=== PATIENT | male | born 1950 | race Caucasian/White ===

== ENCOUNTER 2016-05-19 00:55 | Emergency (ER) | payer MEDICAID, SELFPAY ==
[2016-05-19 01:03] VITALS: BP 173/102
[2016-05-19] MEDS ORDERED: Sodium Chloride 0.9% 1,000 ML IV SCH (01:30)
--- NOTE | 2016-05-19 01:46 | EDM.PDOC ---
ED HPI GENERAL MEDICAL PROBLEM - General Chief Complaint: Abdominal Pain Stated Complaint: [facility] Time Seen by Provider: 05/19/16 01:01 Source of Information: Reports: Patient, EMS, RN notes reviewed History Limitations: Reports: Combative/threatening, Intoxication, Uncooperative - History of Present Illness INITIAL COMMENTS - FREE TEXT/NARRATIVE: The patient is brought to the ED by EMS, accompanied by [facility] police. According to the EMS report, the patient was at a bar. A friend of the patient informed EMS that the patient has a psychiatric history and he apparently has not slept in the past 3 days, he has been pacing, and hearing his dogs talk. He told EMS that he hurts all over, but did not specify. Here in the ED, the patient states that he has abdominal pain, indicating the left lower quadrant, but will not answer questions regarding the duration, character, whether or not it radiates, and whether or not it is recurrent. He is uncooperative, extremely hostile, and physically threatening. He smells of stale urine and alcohol. Reviewing prior medical records, it appears that the patient has a history of anxiety, depression, and PTSD. He is a known alcoholic, and the patient's friend told EMS that he also uses methamphetamine. Lower Abdomen Pain Score (Numeric/FACES): 10 - Related Data Allergies Allergy/AdvReac Type Severity Reaction Status Date / Time No Known Allergies Allergy Verified 05/19/16 01:03 Home Meds: Home Meds Folic Acid 1 mg PO BEDTIME #30 tablet 01/21/14 [Rx] Propranolol [Inderal] 40 mg PO Q8H 30 Days 01/21/14 [Rx] Spironolactone [Aldactone] 25 mg PO BID 30 Days 01/21/14 [Rx] Thiamine [Vitamin B-1] 100 mg PO BEDTIME 30 Days 01/21/14 [Rx] traZODone 150 mg PO BEDTIME 30 Days 01/21/14 [Rx] Ibuprofen [Advil] 1 - 2 tab PO ONCALL PRN 03/19/14 [History] Multivitamin [Multi Vitamin Daily] 1 tab PO DAILY 03/19/14 [History] Past Medical History Cardiovascular History: Reports: Heart Failure, Hypertension Psychiatric History: Reports: Addiction, Anxiety, Depression, PTSD - Past Surgical History Musculoskeletal Surgical History: Reports: ORIF (left leg) Social & Family History - Tobacco Use Smoking Status *Q: Current Every Day Smoker Years of Tobacco use: 49 - Alcohol Use Alcohol Use History: Yes Days Per Week of Alcohol Use: 7 Number of Drinks Per Day: 9 Total Drinks Per Week: 63 - Recreational Drug Use Recreational Drug Use: Yes Recreational Drug Type: Reports: Methamphetamine - Living Situation & Occupation Living situation: Reports: other (Unknown) ED ROS GENERAL - Review of Systems Review Of Systems: Unable To Obtain ED EXAM, GENERAL - Physical Exam Exam: See Below Exam Limited By: Uncooperative General Appearance: alert, WD/WN, other (Agitated, hostile) Eye Exam: bilateral eye: EOMI, normal inspection Ears: normal external exam, hearing grossly normal Ear Exam: bilateral ear: auricle normal Nose: normal inspection, no blood Throat/Mouth: Normal inspection, Normal lips, Normal voice, No airway compromise Head: atraumatic, normocephalic Neck: normal inspection, full range of motion Respiratory/Chest: no respiratory distress, lungs clear, normal breath sounds, no accessory muscle use, chest non-tender Cardiovascular: normal peripheral pulses, no edema, no gallop, no JVD, no murmur , no rub, tachycardia (regular) Peripheral Pulses: 4+: radial (L), radial (R) GI/Abdominal: normal bowel sounds, soft, no organomegaly, no distention, no abnormal bruit, no mass, tender (unclear if tender - patient would not answer) Back Exam: normal inspection, full range of motion, NT Extremities: normal inspection, normal range of motion, non-tender, normal capillary refill Neurological: alert, no motor/sensory deficits Psychiatric: other (agitated) Skin Exam: Warm, Dry, Intact, Normal color, No rash, Tattoo(s) Lymphatic: no adenopathy EKG INTERPRETATION EKG Date: 05/19/16 Time: 01:38 Rhythm: other (Sinus tachycardia) Rate (beats/min): 122 [place]: normal P-wave: present QRS: normal ST-T: other (There is a suggestion of [address] elevation in the inferior leads, however, they are concave, not convex, and there are no T wave inversions.) QT: normal Course - Vital Signs Last Recorded V/S: Last Vital Signs Temp 37.4 C 05/19/16 00:59 Pulse 122 H 05/19/16 00:59 Resp 22 H 05/19/16 00:59 BP 173/102 H 05/19/16 00:59 Pulse Ox 95 05/19/16 00:59 - Orders/Labs/Meds Orders: Active Orders 24 hr Category Date Time Status EKG Documentation Completion [RC] STAT Care 05/19/16 01:22 Active Abdomen Pelvis w Cont [CT] Stat Exams 05/19/16 01:22 Taken Sodium Chloride 0.9% [Normal Saline] 1,000 ml Med 05/19/16 01:30 Active IV ASDIRECTED Medication Orders Sodium Chloride (Normal Saline) 1,000 mls @ 150 mls/hr IV ASDIRECTED SAMIA Last Admin: 05/19/16 01:59 Dose: 150 mls/hr Labs: Laboratory Tests 05/19/16 05/19/16 05/19/16 Range/Units 01:50 01:50 01:50 WBC 11.44 H (4.23-9.07) K/mm3 RBC 5.75 (4.63-6.08) M/mm3 Hgb 18.2 H (13.7-17.5) gm/L Hct 52.2 H (40.1-51.0) % MCV 90.8 (79.0-92.2) fl MCH 31.7 (25.7-32.2) pg MCHC 34.9 (32.2-35.5) g/dl RDW Std Deviation 43.0 (35.1-43.9) fL Plt Count 136 L (163-337) K/mm3 MPV 10.7 (9.4-12.3) fl Neutrophils % (Manual) 60 (40-60) % Band Neutrophils % 0 (0-10) % Lymphocytes % (Manual) 14 L (20-40) % Atypical Lymphs % 8 % Monocytes % (Manual) 13 H (2-10) % Eosinophils % (Manual) 4 (0.8-7.0) % Basophils % (Manual) 1 (0.2-1.2) Platelet Estimate Decreased Plt Morphology Comment Normal Spherocytes Few RBC Morph Comment Not Reportable Sodium 147 H (136-145) mEq/L Potassium 3.6 (3.5-5.1) mEq/L Chloride 106 (98-107) mEq/L Carbon Dioxide 22 (21-32) mEq/L Anion Gap 22.6 H (5-15) BUN 12 (7-18) mg/dL Creatinine 0.9 (0.7-1.3) mg/dL Est Cr Clr Drug Dosing TNP Estimated GFR (MDRD) > 60 (>60) mL/min BUN/Creatinine Ratio 13.3 L (14-18) Glucose 108 (80-115) mg/dL Calcium 8.6 (8.5-10.1) mg/dL Total Bilirubin 1.0 (0.2-1.0) mg/dL AST 490 H (15-37) U/L ALT 360 H (16-63) U/L Alkaline Phosphatase 123 H (46-116) U/L Total Protein 7.4 (6.4-8.2) g/dl Albumin 3.8 (3.4-5.0) g/dl Globulin 3.6 gm/dL Albumin/Globulin Ratio 1.1 (1-2) Lipase 117 (73-393) U/L TSH 3rd Generation 0.441 (0.358-3.74) uIU/mL Urine Color (Yellow) Urine Appearance (Clear) Urine pH (5.0-8.0) Ur Specific [place] (1.005-1.030) Urine Protein (Negative) Urine Glucose (UA) (Negative) Urine Ketones (Negative) Urine Occult Blood (Negative) Urine Nitrite (Negative) Urine Bilirubin (Negative) Urine Urobilinogen (0.2-1.0) Ur Leukocyte Esterase (Negative) Urine RBC (0-5) /hpf Urine WBC (0-5) /hpf Ur Epithelial Cells (0-5) /hpf Urine Bacteria (FEW) /hpf Urine Mucus (FEW) /hpf Urine Yeast (NOT SEEN) Salicylates 2.8 (2.8-20) mg/dL Urine Opiates Screen (NEGATIVE) Ur Buprenorphine Scrn (NEGATIVE) Ur Oxycodone Screen (NEGATIVE) Urine Methadone Screen (NEGATIVE) Ur Propoxyphene Screen (NEGATIVE) Acetaminophen 0 L (10-30) ug/mL Ur Barbiturates Screen (NEGATIVE) Ur Tricyclics Screen (NEGATIVE) Ur Phencyclidine Scrn (NEGATIVE) Ur Amphetamine Screen (NEGATIVE) U Methamphetamines Scrn (NEGATIVE) U Benzodiazepines Scrn (NEGATIVE) U Cocaine Metab Screen (NEGATIVE) U Marijuana (THC) Screen (NEGATIVE) Ethyl Alcohol 0.31 (0.00) gm% 05/19/16 05/19/16 Range/Units 03:30 03:30 WBC (4.23-9.07) K/mm3 RBC (4.63-6.08) M/mm3 Hgb (13.7-17.5) gm/L Hct (40.1-51.0) % MCV (79.0-92.2) fl MCH (25.7-32.2) pg MCHC (32.2-35.5) g/dl RDW Std Deviation (35.1-43.9) fL Plt Count (163-337) K/mm3 MPV (9.4-12.3) fl Neutrophils % (Manual) (40-60) % Band Neutrophils % (0-10) % Lymphocytes % (Manual) (20-40) % Atypical Lymphs % % Monocytes % (Manual) (2-10) % Eosinophils % (Manual) (0.8-7.0) % Basophils % (Manual) (0.2-1.2) Platelet Estimate Plt Morphology Comment Spherocytes RBC Morph Comment Sodium (136-145) mEq/L Potassium (3.5-5.1) mEq/L Chloride (98-107) mEq/L Carbon Dioxide (21-32) mEq/L Anion Gap (5-15) BUN (7-18) mg/dL Creatinine (0.7-1.3) mg/dL Est Cr Clr Drug Dosing Estimated GFR (MDRD) (>60) mL/min BUN/Creatinine Ratio (14-18) Glucose (80-115) mg/dL Calcium (8.5-10.1) mg/dL Total Bilirubin (0.2-1.0) mg/dL AST (15-37) U/L ALT (16-63) U/L Alkaline Phosphatase (46-116) U/L Total Protein (6.4-8.2) g/dl Albumin (3.4-5.0) g/dl Globulin gm/dL Albumin/Globulin Ratio (1-2) Lipase (73-393) U/L TSH 3rd Generation (0.358-3.74) uIU/mL Urine Color Yellow (Yellow) Urine Appearance Slt cloudy H (Clear) Urine pH 5.5 (5.0-8.0) Ur Specific [place] 1.025 (1.005-1.030) Urine Protein 2+ H (Negative) Urine Glucose (UA) Negative (Negative) Urine Ketones 1+ H (Negative) Urine Occult Blood 1+ H (Negative) Urine Nitrite Negative (Negative) Urine Bilirubin 1+ H (Negative) Urine Urobilinogen 2.0 H (0.2-1.0) Ur Leukocyte Esterase Negative (Negative) Urine RBC 0-5 (0-5) /hpf Urine WBC Not seen (0-5) /hpf Ur Epithelial Cells 0-5 (0-5) /hpf Urine Bacteria Rare (FEW) /hpf Urine Mucus Not seen (FEW) /hpf Urine Yeast Not seen (NOT SEEN) Salicylates (2.8-20) mg/dL Urine Opiates Screen Negative (NEGATIVE) Ur Buprenorphine Scrn Negative (NEGATIVE) Ur Oxycodone Screen Negative (NEGATIVE) Urine Methadone Screen Negative (NEGATIVE) Ur Propoxyphene Screen Negative (NEGATIVE) Acetaminophen (10-30) ug/mL Ur Barbiturates Screen Negative (NEGATIVE) Ur Tricyclics Screen Negative (NEGATIVE) Ur Phencyclidine Scrn Negative (NEGATIVE) Ur Amphetamine Screen Negative (NEGATIVE) U Methamphetamines Scrn Negative (NEGATIVE) U Benzodiazepines Scrn Presumptive positive H (NEGATIVE) U Cocaine Metab Screen Negative (NEGATIVE) U Marijuana (THC) Screen Negative (NEGATIVE) Ethyl Alcohol (0.00) gm% Meds: Medications Generic Name Dose Route Start Last Admin Trade Name Freq PRN Reason Stop Dose Admin Sodium Chloride 1,000 mls @ 150 mls/hr 05/19/16 01:30 05/19/16 01:59 Normal Saline IV 150 mls/hr ASDIRECTED SAMIA Administration Discontinued Medications Generic Name Dose Route Start Last Admin Trade Name Freq PRN Reason Stop Dose Admin Diatrizoate Meglum/Diatrizoate Sod 90 ml 05/19/16 03:33 05/19/16 03:55 Gastrografin 37% PO 05/19/16 03:34 Not Given ONETIME ONE Iopamidol 150 ml 05/19/16 03:33 05/19/16 03:55 Isovue-300 (61%) IVPUSH 05/19/16 03:34 125 ml ONETIME ONE Administration Sodium Chloride 10 ml 05/19/16 03:33 05/19/16 03:55 Saline Flush FLUSH 05/19/16 03:34 10 ml ONETIME ONE Administration - Radiology Interpretation Free Text/Narrative:: CT of the abdomen and pelvis with IV contrast is read by [facility] as: 1. No acute finding. 2. No CT findings of acute appendicitis. 3. No CT findings of acute diverticulitis or colitis. 4. Additional nonemergent CT findings above. - Re-Assessments/Exams Free Text/Narrative Re-Assessment/Exam: 05/19/16 02:26 The patient has fallen asleep. We will attempt to acquire a CT scan of the abdomen and pelvis, although the patient will not have drunk any oral contrast. 05/19/16 02:55 The patient has since woken up and pulled his IV out. We will see if he will allow replacement prior to the scan. 05/19/16 04:42 Test results were reviewed. The patient's workup is unremarkable, with the exception of an alcohol level significantly elevated at 0.31, and a urine drug screen positive for benzodiazepines. The patient's transaminases are elevated and a pattern consistent with alcohol abuse, and his alkaline phosphatase is mildly elevated. His sodium is elevated at 147, and his H/H are elevated, consistent with dehydration. He removed his second IV, however, we will try to hydrate him orally. I don't believe the patient needs to be admitted to the hospital, however, given his intoxication, I believe it would be prudent to keep him here in the ED until he is more sober, at which time he can be discharged home. 05/19/16 07:24 The patient is more sober and lucid. I believe he can safely be discharged home. We are working on how to get him home, as he lives about 50 miles away, and does not have a ride. 05/19/16 07:26 We have contacted a taxi service, and they are willing to take the patient. I will discharge him. Departure - Departure Time of Disposition: 07:26 Disposition: Home, Self-Care 01 Condition: fair Clinical Impression: Alcohol intoxication Referrals: PCP,None [Primary Care Provider] - Laruen Hummel PA-C [Physician Preparator] - Forms: ED Department Discharge Additional Instructions: You were seen in the emergency room tonight for alcohol intoxication and a complaint of abdominal pain. Workup in the ER included blood work, a urinalysis, a urine drug screen, an ECG , and a CT scan of your abdomen and pelvis. Your alcohol level returned at significantly elevated at 0.31. For reference, the legal limit for driving is at 0.08. The remainder of her workup was unremarkable. We STRONGLY recommend you seek professional help to stop drinking. Followup with Lauren Hummel in the clinic at the next available appointment. If any other problems, please do not hesitate to return to the ER. - My Orders Last 24 Hours: My Active Orders 05/19/16 01:22 EKG Documentation Completion [RC] STAT Abdomen Pelvis w Cont [CT] Stat 05/19/16 01:30 Sodium Chloride 0.9% [Normal Saline] 1,000 ml IV ASDIRECTED - Assessment/Plan Last 24 Hours: My Active Orders 05/19/16 01:22 EKG Documentation Completion [RC] STAT Abdomen Pelvis w Cont [CT] Stat 05/19/16 01:30 Sodium Chloride 0.9% [Normal Saline] 1,000 ml IV ASDIRECTED
[2016-05-19 02:28] LABS: ACETAMINOPHEN 0 ug/mL (10-30)
[2016-05-19] MEDS ORDERED: Diatrizoate Meglumine/Diatrizoate Sodium 37% 120 ML Bottle PO ONE (03:33)
[2016-05-19] MEDS ORDERED: Sodium Chloride 0.9% 10 ML Syringe FLUSH ONE (03:33)
[2016-05-19] MEDS ORDERED: Iopamidol 612 MG/ML 150 ML Bottle IVPUSH ONE (03:33)
--- NOTE | 2016-05-21 10:31 | CT ---
CT abdomen and pelvis Technique: Multiple axial sections were obtained from above the kidneys inferiorly through the pubic symphysis. Intravenous contrast was utilized. No oral contrast has been given. Delayed images were also obtained through the abdomen and pelvis. Comparison: Previous abdominal ultrasound of 01/19/14 is available. Findings: Liver shows fatty infiltration. No focal abnormality appreciated within the liver. Liver is also slightly generous in size. Visualized lung bases are clear. Spleen appears within normal limits. Spleen size measures 12.3 cm. Mild wall thickening seen of the distal esophagus most likely due to change from reflux esophagitis. Adrenal glands show no nodule. Pancreas appears within normal limits. Kidneys show symmetric contrast enhancement without hydronephrosis or mass. Aorta shows no aneurysmal dilatation. No retroperitoneal adenopathy or mesenteric abnormalities are seen. No pelvic mass or adenopathy is seen. Appendix felt to be seen and appears within normal limits. Delayed images show contrast excretion from both kidneys. No filling defects seen within the opacified collecting systems. Contrast seen throughout the ureters and contrast also noted within the bladder. Bone window settings were reviewed showing diffuse disc space narrowing and vacuum phenomena within the spine with endplate sclerosis and posterior and anterior spurring. No free fluid or inflammatory change is seen. Impression: 1. Chronic appearing findings as noted above. No acute abnormality identified on CT study of the abdomen and pelvis. Diagnostic code #2 Agree with preliminary report issued by [employer] (preliminary [facility] report dictated on 05/19/16, 5:12 AM Central Time)
== END 2016-05-19 07:43 | disposition home or self-care (01) ==
LOC: JD.ED 00:55
DX: F10.129 Alcohol abuse with intoxication, unspecified (principal); I11.0 Hypertensive heart disease with heart failure; I50.9 Heart failure, unspecified; F41.9 Anxiety disorder, unspecified; F32.9 Major depressive disorder, single episode, unspecified; Z79.899 Other long term (current) drug therapy; F17.200 Nicotine dependence, unspecified, uncomplicated
CPT/HCPCS: 36415; 74177; 80053; 80306; 81001; 83690; 84443; 85025; 93005; 96360; 99285; G0480; J7040; J7050; Q9963; Q9967; 99284

== ENCOUNTER 2021-11-09 17:55 | Emergency (ER) | payer MEDICARE, MEDICAID ==
[2021-11-09 18:33] VITALS: BP 119/115; PULSE 104
== END 2021-11-09 18:20 | disposition left against medical advice (07) ==
LOC: JD.ED 17:55
DX: Z53.21 Procedure and treatment not carried out due to patient leaving prior to being seen by health care provider (principal)